=== PATIENT | male | born 1985 | race Caucasian/White ===

== ENCOUNTER 2020-02-26 12:58 | Outpatient (NON) | payer OTHER, SELFPAY ==
[2020-02-26 23:56] LABS: SARS-CoV-2 RNA PCR Negative
== END 2020-02-26 12:59 ==
LOC: ANHCOVIDDT 12:59
PROVIDERS: PCP Family Medicine; Visit Provider Physician Assistant Medical
DX: Z20.828 Contact with and (suspected) exposure to other viral communicable diseases (principal); R68.89 Other general symptoms and signs
CPT/HCPCS: 87635; C9803; U0003